=== PATIENT | male | born 1995 ===

== ENCOUNTER 2021-12-08 03:56 | Emergency (ER) | payer BC, MEDICAID ==
[~2021-12-08] VITALS: Ht 165.1 cm; Wt 73.0 kg
[2021-12-08] MEDS ORDERED: CLINDAMYCIN PHOS 150 MG/ML 4 ML VIAL IM ONE (08:00)
[2021-12-08] MEDS: CLINDAMYCIN HCL 150 MG CAPSULE PO ONE ×2 (08:34→08:37)
[2021-12-08] MEDS ORDERED: CLIN-26 PO (11:17)
[2021-12-08 11:45] VITALS: BP 115/71
== END 2021-12-08 11:49 | disposition home or self-care (01) ==
LOC: EMS 04:04
DX: L03.116 Cellulitis of left lower limb (principal); F10.20 Alcohol dependence, uncomplicated; F17.210 Nicotine dependence, cigarettes, uncomplicated
CPT/HCPCS: 99283; J3490